=== PATIENT | female | born 1950 ===

== ENCOUNTER 2018-11-23 13:43 | Emergency (ER) | payer OTHER ==
[~2018-11-23] VITALS: Ht 162.6 cm; Wt 80.7 kg
[~2018-11-23 13:43] MED LIST: DIOVAN HCT 160-1 TAB PO; INSULIN; [UNRECOGNIZED DRUG - OTHER]
[2018-11-23] MEDS ORDERED: BACLOFEN20 MG (14:15)
[2018-11-23] MEDS ORDERED: SYNTHROID88 MCG (14:15)
[2018-11-23] MEDS ORDERED: COZAAR100 MG (14:21)
[2018-11-23] MEDS ORDERED: KETO10TA2 PO (16:06)
[2018-11-23] MEDS ORDERED: NORFLEX100MG PO (16:06)
== END 2018-11-23 16:34 | disposition home or self-care (01) ==
LOC: ER 13:43
DX: M25.512 Pain in left shoulder (principal); M54.2 Cervicalgia; R07.89 Other chest pain

== ENCOUNTER 2022-11-25 20:43 | Emergency (ER) | payer OTHER ==
[~2022-11-25] VITALS: Ht 162.6 cm; Wt 76.7 kg
[~2022-11-25 20:43] MED LIST changes: +BACLOFEN20 MG; +COZAAR100 MG; +KETO10TA2 PO; +NORFLEX100MG PO; +SYNTHROID88 MCG
== END 2022-11-25 22:29 | disposition home or self-care (01) ==
LOC: ER 20:43
DX: I10 Essential (primary) hypertension (principal)